=== PATIENT | female | born 2000 | race Caucasian/White ===

== ENCOUNTER 2018-09-26 12:53 | Emergency (ER) | payer BC ==
[~2018-09-26] VITALS: Ht 167.6 cm; Wt 68.5 kg
[2018-09-26 13:06] VITALS: BP 106/57
--- NOTE | 2018-09-26 13:09 | NUR ---
patient to lobby with steady gait to wait for available bed. vss. nad
--- NOTE | 2018-09-26 13:14 | NUR ---
PATIENT LEFT WITHOUT BEING SEEN BY DR. CONNOLLY. NO FURTHER CARE PROVIDED FOR PATIENT.
== END 2018-09-26 13:16 | disposition left against medical advice (07) ==
LOC: MED 12:53
DX: R21 Rash and other nonspecific skin eruption (principal); Z53.21 Procedure and treatment not carried out due to patient leaving prior to being seen by health care provider